=== PATIENT | male | born 1950 | race Two or more races ===

== ENCOUNTER 2018-04-20 11:05 | Emergency (ER) | payer MEDICARE, BC ==
[~2018-04-20] VITALS: Ht 172.7 cm; Wt 77.1 kg
--- NOTE | 2018-04-20 11:37 | NUR ---
bib RA 89 s/p fell off the chair x 30 mins ago no LOC , previous injury left arm , no complaints. PT IS AOX4, AMB, VSS, RR EVEN AND UNLABORED. SKIN INTACT. NO ACUTE DISTRESS NOTED. SON AT BEDSIDE. READY FOR EVAL.
--- NOTE | 2018-04-20 13:02 | NUR ---
[employer]OCIATE CALLED RADIOLOGY FOR CT. STATED THEY HAVE A LOT OF ORDERS AND WILL GET TO IT.
--- NOTE | 2018-04-20 13:17 | NUR ---
PT BACK FROM CT. EDIS WELL. WILL CONT TO MONITOR
--- NOTE | 2018-04-20 14:01 | NUR ---
Patient discharged to home in stable condition. Written and verbal after care instructions given. Patient verbalizes understanding of instruction.
[2018-04-20 14:03] VITALS: BP 122/84
== END 2018-04-20 14:04 | disposition home or self-care (01) ==
LOC: ER 11:07
DX: S09.8XXA Other specified injuries of head, initial encounter (principal); I10 Essential (primary) hypertension; R56.9 Unspecified convulsions; Z95.5 Presence of coronary angioplasty implant and graft; Z86.73 Personal history of transient ischemic attack (TIA), and cerebral infarction without residual deficits; W07.XXXA Fall from chair, initial encounter; Y93.89 Activity, other specified; Y92.89 Other specified places as the place of occurrence of the external cause; Y99.8 Other external cause status
CPT/HCPCS: 70450; 99284; A4606